=== PATIENT | female | born 1975 | race Caucasian/White ===

== ENCOUNTER 2018-02-22 13:51 | Emergency (ER) | payer MEDICAID ==
[~2018-02-22] VITALS: Ht 172.7 cm; Wt 126.1 kg
[2018-02-22 14:02] VITALS: BP 152/78
[2018-02-22] MEDS ORDERED: IBUPROFEN 800 MG TAB PO ONE (15:45)
== END 2018-02-22 15:45 | disposition home or self-care (01) ==
LOC: ER 13:51
DX: S93.601A Unspecified sprain of right foot, initial encounter (principal); I10 Essential (primary) hypertension; W18.39XA Other fall on same level, initial encounter; Y93.01 Activity, walking, marching and hiking; Y99.8 Other external cause status; Y92.89 Other specified places as the place of occurrence of the external cause
CPT/HCPCS: 73630

== ENCOUNTER 2018-10-15 13:06 | Emergency (ER) | payer MEDICAID ==
[~2018-10-15] VITALS: Ht 172.7 cm; Wt 146.1 kg
[2018-10-15 14:57] VITALS: BP 134/80
[2018-10-15] MEDS ORDERED: KETOROLAC TROMETH 60MG/2ML VIAL IM ONE (15:15)
== END 2018-10-15 17:19 | disposition home or self-care (01) ==
LOC: ER 13:12
DX: S00.83XA Contusion of other part of head, initial encounter (principal); I10 Essential (primary) hypertension; Y07.03 Male partner, perpetrator of maltreatment and neglect; Y93.89 Activity, other specified; Y99.8 Other external cause status; Y92.89 Other specified places as the place of occurrence of the external cause
CPT/HCPCS: 70110; 96372; 99283; J1885

== ENCOUNTER 2020-07-27 21:02 | Inpatient (IN) | payer MEDICAID ==
[~2020-07-27] VITALS: Ht 172.7 cm; Wt 190.1 kg
[2020-07-27 22:15] LABS: Hematocrit 43.8 % (36.0-46.0); Hemoglobin 14.4 g/dL (12.2-16.2); Mean Corpuscular Hemoglobin 29.1 pg (28.0-32.0); Mean Corpuscular Hgb Conc. 32.8 g/dL (32.0-36.0); Mean Corpuscular Volume 88.5 fL (80.0-100.0); Platelet Count (auto) 187 10^3/uL (140-450); Red Blood Cells 4.95 10^6/uL (4.0-5.20); Red Cell Distribution Width 16.3 % (11.8-14.3); White Blood Cell 17.4 10^3/uL (4.4-10.8)
[2020-07-27 22:18] LABS: Basophils % (manual) 0 (0.0-2.0); Blast Cells 0; Eosinophils % (manual) 0 (0-7); Metamyelocytes % 0; Myelocytes % 0; Promyelocytes % 0; Reactive Lymphocytes 0
[2020-07-27 22:19] LABS: Chloride 105 mmol/L (98-107); Potassium 3.9 mmol/L (3.5-5.1); Sodium 138 mmol/L (136-145)
[2020-07-27 22:28] LABS: Alanine Aminotransferase 18 U/L (13-56); Albumin 3.1 g/dL (3.4-5.0); Alkaline Phosphatase 66 U/L (45-117); Anion Gap 7 (5-15); Aspartate Aminotransferase 18 U/L (15-37); Blood Urea Nitrogen 15 mg/dL (7-18); Calcium 8.1 mg/dL (8.5-10.1); Carbon Dioxide 26 mmol/L (21-32); GFR African American 43 mL/min; GFR Non-African American 36 mL/min; Glucose 134 mg/dL (74-106); Lactate Dehydrogenase 224 U/L (84-246); Magnesium 1.9 mg/dL (1.6-2.6); Total Protein 7.5 g/dL (6.4-8.2)
[2020-07-27 22:32] LABS: INR 1.03 (0.9-1.15); Partial Thromboplastin Time 20.6 sec (23.0-31.2)
[2020-07-27 23:03] LABS: Band Neutrophils % (manual) 3; Lymphocytes % (manual) 5 (10.0-50.0); Monocytes % (manual) 7 (0-12)
[2020-07-28] MEDS ORDERED: cefTRIAXone 1GM/50ML D5W 50 ML IV ONE
[2020-07-28] MEDS ORDERED: AZITHROMYCIN 500MG/ 250ML 250 ML IV ONE
[2020-07-28] MEDS ORDERED: SODIUM CHLORIDE 0.9% 1,000 ML IV SCH ×2 (00:45→17:15)
[2020-07-28] MEDS ORDERED: ONDANSETRON HCL 4 MG/2 ML VIAL IV ONE (00:45)
[2020-07-28] MEDS ORDERED: NITROGLYCERIN 0.4 MG SL TAB SL PRN (00:45)
[2020-07-28] MEDS ORDERED: TEMAZEPAM 15 MG CAP PO PRN (00:45)
[2020-07-28] MEDS ORDERED: ALBUTEROL SULF HFA 90MCG INH 200DOSE IN PRN (00:45)
[2020-07-28] MEDS ORDERED: MORPHINE SULF INJ 2 MG/ML SYRINGE 1ML IV PRN ×2 (00:45→11:30)
[2020-07-28] MEDS ORDERED: ACETAMINOPHEN 500 MG TAB PO PRN (00:45)
[2020-07-28] MEDS ORDERED: SODIUM CHLORIDE 0.9% 500 ML IV ONE (00:45)
[2020-07-28 01:04] LABS: Urine Bacteria MOD /hpf (None Seen); Urine Blood 3+ /uL (Negative); Urine Hyaline Cast FEW /lpf (0 - 2); Urine Mucus FEW (None Seen); Urine Specific Gravity 1.025 (1.001-1.035); Urine WBC 1248 /hpf (0 - 5); Urine WBC Clumps PRESENT /hpf (None Seen)
[2020-07-28 01:45] VITALS: BP 111/69
[2020-07-28 02:25] VITALS: BP 111/69
[2020-07-28 04:57] VITALS: BP 103/58
[2020-07-28] MEDS: IPRATROPIUM BROMIDE HFA AER IN SCH ×2 (06:00→12:00)
[2020-07-28] MEDS: cefTRIAXone 1GM/50ML D5W 50 ML IV SCH (08:30)
[2020-07-28 08:33] VITALS: BP 81/41
[2020-07-28] MEDS ORDERED: ENOXAPARIN SOD 40 MG/0.4 ML SYRINGE SC SCH (10:00)
[2020-07-28] MEDS ORDERED: ZINC SULFATE 220mg CAP or TAB PO SCH (10:00)
[2020-07-28] MEDS ORDERED: ASCORBIC ACID 1,000 MG TAB PO SCH (10:00)
[2020-07-28] MEDS ORDERED: BUDESONIDE (INHALATION) 180 MCG IH IN SCH (10:00)
[2020-07-28] MEDS ORDERED: CHOLECALCIFEROL (VITD3) 2,000 UNIT CAP/TAB PO SCH (10:00)
[2020-07-28] MEDS ORDERED: DexAMETHasone SOD PHOS 10MG/1ML VIAL INJ IV SCH (10:00)
[2020-07-28] MEDS: AZITHROMYCIN 500MG/ 250ML 250 ML IV SCH (10:40)
[2020-07-28] MEDS: PANTOPRAZOLE 40 MG TAB PO SCH (10:41)
[2020-07-28] MEDS: ONDANSETRON HCL 4 MG/2 ML VIAL IV PRN (12:17)
[2020-07-28 12:30] VITALS: BP 81/45
[2020-07-28] MEDS ORDERED: ALBUMIN 25% 100 ML IV ONE (16:45)
[2020-07-28] MEDS: BUDESONIDE (INHALATION) 0.5 MG/2 ML NEB NEB SCH (19:19)
[2020-07-28] MEDS: IPRATROPIUM BROM 0.5 MG/2.5ML INH SOL NEB SCH (19:19)
[2020-07-28] MEDS: ALBUTEROL SULF 2.5 MG/0.5ML(0.5%) NEB SOLN NEB SCH (19:19)
[2020-07-28 22:00] VITALS: BP 113/70
[2020-07-28] MEDS: ENOXAPARIN SOD 150 MG/1 ML SYRINGE SC SCH (22:28)
[2020-07-29 05:00] VITALS: BP 105/50
[2020-07-29 06:06] LABS: Basophils # (auto) 0 10 ^3/uL (0-0.2); Eosinophils # (auto) 0 10 ^3/uL (0-0.8); Hematocrit 37.6 % (36.0-46.0); Hemoglobin 12.2 g/dL (12.2-16.2); Lymphocytes # (auto) 1.2 10 ^3/uL (0.4-5.4); Lymphocytes % (auto) 5.2 % (10.0-50.0); Mean Corpuscular Hemoglobin 28.8 pg (28.0-32.0); Mean Corpuscular Hgb Conc. 32.5 g/dL (32.0-36.0); Mean Corpuscular Volume 88.5 fL (80.0-100.0); Monocytes # (auto) 1.1 10 ^3/uL (0-1.3); Monocytes % (auto) 4.9 % (0.0-12.0); Neutrophils % (auto) 89.9 % (37.0-80.0); Platelet Count (auto) 228 10^3/uL (140-450); Red Blood Cells 4.24 10^6/uL (4.0-5.20); White Blood Cell 22.2 10^3/uL (4.4-10.8)
[2020-07-29 06:16] LABS: Albumin 2.8 g/dL (3.4-5.0); Calcium 8.3 mg/dL (8.5-10.1); Potassium 4.1 mmol/L (3.5-5.1)
[2020-07-29 06:19] LABS: BUN/Creatinine Ratio 14.3; Bilirubin, Total 0.6 mg/dL (0.2-1.0); Total Protein 7.7 g/dL (6.4-8.2)
[2020-07-29 08:00] VITALS: BP 113/73
[2020-07-29] MEDS: BUDESONIDE (INHALATION) 0.5 MG/2 ML NEB NEB SCH ×2 (08:49→19:13)
[2020-07-29] MEDS: IPRATROPIUM BROM 0.5 MG/2.5ML INH SOL NEB SCH ×2 (08:49→19:13)
[2020-07-29] MEDS: ALBUTEROL SULF 2.5 MG/0.5ML(0.5%) NEB SOLN NEB SCH ×2 (08:49→19:13)
[2020-07-29 09:00] VITALS: BP 113/73
[2020-07-29] MEDS: cefTRIAXone 1GM/50ML D5W 50 ML IV SCH (09:16)
[2020-07-29] MEDS: PANTOPRAZOLE 40 MG TAB PO SCH (09:36)
[2020-07-29] MEDS: ENOXAPARIN SOD 150 MG/1 ML SYRINGE SC SCH (09:37)
[2020-07-29] MEDS: AZITHROMYCIN 500MG/ 250ML 250 ML IV SCH (10:03)
[2020-07-29] MEDS: SODIUM CHLORIDE 0.9% 1,000 ML IV SCH ×2 (11:11→18:36)
[2020-07-29 12:56] LABS: Urine Bacteria FEW /hpf (None Seen); Urine Blood 2+ /uL (Negative); Urine Hyaline Cast FEW /lpf (0 - 2); Urine Mucus FEW (None Seen); Urine WBC 40 /hpf (0 - 5)
[2020-07-29 13:00] VITALS: BP 143/82
[2020-07-29] MEDS: HYDROcodone-ACET 5/325MG TAB PO PRN (13:15)
[2020-07-29] MEDS: metroNIDAZOLE 500MG/100ML 100 ML IV SCH ×2 (13:45→21:11)
[2020-07-29 17:00] VITALS: BP 146/91
[2020-07-29] MEDS: ENOXAPARIN SOD 40 MG/0.4 ML SYRINGE SC SCH (21:11)
[2020-07-29 22:00] VITALS: BP 132/77
[2020-07-30] MEDS: SODIUM CHLORIDE 0.9% 1,000 ML IV SCH ×2 (03:04→11:40)
[2020-07-30 05:00] VITALS: BP 132/79
[2020-07-30] MEDS: metroNIDAZOLE 500MG/100ML 100 ML IV SCH ×3 (05:24→21:21)
[2020-07-30] MEDS: ALBUTEROL SULF 2.5 MG/0.5ML(0.5%) NEB SOLN NEB SCH ×3 (05:57→20:06)
[2020-07-30] MEDS: IPRATROPIUM BROM 0.5 MG/2.5ML INH SOL NEB SCH ×3 (05:57→20:06)
[2020-07-30] MEDS: BUDESONIDE (INHALATION) 0.5 MG/2 ML NEB NEB SCH ×2 (05:57→20:06)
[2020-07-30 05:59] LABS: Basophils # (auto) 0 10 ^3/uL (0-0.2); Basophils % (auto) 0.1 % (0.0-2.0); Eosinophils # (auto) 0.1 10 ^3/uL (0-0.8); Eosinophils % (auto) 0.5 % (0.0-7.0); Hematocrit 35.6 % (36.0-46.0); Hemoglobin 11.6 g/dL (12.2-16.2); Lymphocytes # (auto) 1.3 10 ^3/uL (0.4-5.4); Lymphocytes % (auto) 8.9 % (10.0-50.0); Mean Corpuscular Hemoglobin 29.4 pg (28.0-32.0); Mean Corpuscular Hgb Conc. 32.6 g/dL (32.0-36.0); Monocytes # (auto) 0.6 10 ^3/uL (0-1.3); Neutrophils # (auto) 12.3 10 ^3/uL (1.6-8.6); Neutrophils % (auto) 86.5 % (37.0-80.0); Platelet Count (auto) 222 10^3/uL (140-450); Red Blood Cells 3.96 10^6/uL (4.0-5.20); Red Cell Distribution Width 16.3 % (11.8-14.3); White Blood Cell 14.2 10^3/uL (4.4-10.8)
[2020-07-30 06:20] LABS: Potassium 4.3 mmol/L (3.5-5.1)
[2020-07-30 06:29] LABS: BUN/Creatinine Ratio 20.7; Calcium 7.9 mg/dL (8.5-10.1)
[2020-07-30 08:00] VITALS: BP 156/80
[2020-07-30] MEDS ORDERED: SODIUM CHLORIDE 0.9% 1,000 ML IV ONE (08:30)
[2020-07-30 08:41] VITALS: BP 156/80
[2020-07-30] MEDS: cefTRIAXone 1GM/50ML D5W 50 ML IV SCH (09:34)
[2020-07-30] MEDS: PANTOPRAZOLE 40 MG TAB PO SCH (09:35)
[2020-07-30] MEDS: ENOXAPARIN SOD 40 MG/0.4 ML SYRINGE SC SCH ×2 (09:35→21:21)
[2020-07-30 12:55] VITALS: BP 126/74
[2020-07-30] MEDS: guaiFENesin-DM 100/10mg/5ml SYR PO PRN ×2 (15:32→21:22)
[2020-07-30 16:47] VITALS: BP 127/82
[2020-07-30] MEDS: HYDROcodone-ACET 5/325MG TAB PO PRN (18:59)
[2020-07-30 22:00] VITALS: BP 109/59
[2020-07-31 05:00] VITALS: BP 116/68
[2020-07-31 06:15] LABS: Basophils # (auto) 0 10 ^3/uL (0-0.2); Basophils % (auto) 0.3 % (0.0-2.0); Eosinophils # (auto) 0.2 10 ^3/uL (0-0.8); Eosinophils % (auto) 2.6 % (0.0-7.0); Hematocrit 34.3 % (36.0-46.0); Hemoglobin 11.3 g/dL (12.2-16.2); Lymphocytes # (auto) 1.5 10 ^3/uL (0.4-5.4); Lymphocytes % (auto) 17.6 % (10.0-50.0); Mean Corpuscular Hemoglobin 29.6 pg (28.0-32.0); Mean Corpuscular Hgb Conc. 33.1 g/dL (32.0-36.0); Mean Corpuscular Volume 89.5 fL (80.0-100.0); Monocytes # (auto) 0.6 10 ^3/uL (0-1.3); Neutrophils # (auto) 6.2 10 ^3/uL (1.6-8.6); Neutrophils % (auto) 72.5 % (37.0-80.0); Nucleated Red Blood Cells % 0.1 %; Platelet Count (auto) 198 10^3/uL (140-450); Red Blood Cells 3.83 10^6/uL (4.0-5.20); Red Cell Distribution Width 16.5 % (11.8-14.3); White Blood Cell 8.5 10^3/uL (4.4-10.8)
[2020-07-31 06:30] LABS: BUN/Creatinine Ratio 19.4; Potassium 4.3 mmol/L (3.5-5.1)
[2020-07-31] MEDS: metroNIDAZOLE 500MG/100ML 100 ML IV SCH ×3 (06:30→21:25)
[2020-07-31] MEDS: SODIUM CHLORIDE 0.9% 1,000 ML IV SCH (07:30)
[2020-07-31] MEDS: ALBUTEROL SULF 2.5 MG/0.5ML(0.5%) NEB SOLN NEB SCH ×3 (07:42→18:01)
[2020-07-31] MEDS: BUDESONIDE (INHALATION) 0.5 MG/2 ML NEB NEB SCH ×2 (07:42→18:01)
[2020-07-31] MEDS: IPRATROPIUM BROM 0.5 MG/2.5ML INH SOL NEB SCH ×3 (07:42→18:01)
[2020-07-31 09:00] VITALS: BP 136/82
[2020-07-31] MEDS: PANTOPRAZOLE 40 MG TAB PO SCH (10:01)
[2020-07-31] MEDS: cefTRIAXone 1GM/50ML D5W 50 ML IV SCH (10:01)
[2020-07-31] MEDS: ENOXAPARIN SOD 40 MG/0.4 ML SYRINGE SC SCH ×2 (10:01→21:26)
[2020-07-31 13:00] VITALS: BP 128/87
[2020-07-31 17:00] VITALS: BP 134/89
[2020-07-31] MEDS: HYDROcodone-ACET 5/325MG TAB PO PRN (21:25)
[2020-07-31 22:00] VITALS: BP 140/85
[2020-08-01 05:00] VITALS: BP 137/87
[2020-08-01] MEDS: SODIUM CHLORIDE 0.9% 1,000 ML IV SCH (06:00)
[2020-08-01] MEDS: IPRATROPIUM BROM 0.5 MG/2.5ML INH SOL NEB SCH ×3 (06:22→18:54)
[2020-08-01] MEDS: BUDESONIDE (INHALATION) 0.5 MG/2 ML NEB NEB SCH ×2 (06:22→18:54)
[2020-08-01] MEDS: ALBUTEROL SULF 2.5 MG/0.5ML(0.5%) NEB SOLN NEB SCH ×3 (06:22→18:54)
[2020-08-01] MEDS: metroNIDAZOLE 500MG/100ML 100 ML IV SCH ×3 (06:27→22:02)
[2020-08-01 06:36] LABS: Basophils # (auto) 0 10 ^3/uL (0-0.2); Basophils % (auto) 0.3 % (0.0-2.0); Eosinophils # (auto) 0.2 10 ^3/uL (0-0.8); Eosinophils % (auto) 3.3 % (0.0-7.0); Hematocrit 35.3 % (36.0-46.0); Hemoglobin 11.7 g/dL (12.2-16.2); Lymphocytes # (auto) 1.7 10 ^3/uL (0.4-5.4); Lymphocytes % (auto) 22.9 % (10.0-50.0); Mean Corpuscular Hemoglobin 29.6 pg (28.0-32.0); Mean Corpuscular Hgb Conc. 33.1 g/dL (32.0-36.0); Mean Corpuscular Volume 89.3 fL (80.0-100.0); Monocytes # (auto) 0.6 10 ^3/uL (0-1.3); Monocytes % (auto) 8.6 % (0.0-12.0); Neutrophils # (auto) 4.7 10 ^3/uL (1.6-8.6); Neutrophils % (auto) 64.9 % (37.0-80.0); Nucleated Red Blood Cells % 0.1 %; Platelet Count (auto) 210 10^3/uL (140-450); Red Blood Cells 3.95 10^6/uL (4.0-5.20); Red Cell Distribution Width 15.9 % (11.8-14.3); White Blood Cell 7.2 10^3/uL (4.4-10.8)
[2020-08-01 06:44] LABS: Albumin 2.5 g/dL (3.4-5.0); Calcium 8.4 mg/dL (8.5-10.1); Potassium 4.5 mmol/L (3.5-5.1)
[2020-08-01 06:47] LABS: BUN/Creatinine Ratio 15.5; Bilirubin, Total 0.6 mg/dL (0.2-1.0); Total Protein 6.8 g/dL (6.4-8.2)
[2020-08-01] MEDS: PANTOPRAZOLE 40 MG TAB PO SCH (08:18)
[2020-08-01] MEDS: cefTRIAXone 1GM/50ML D5W 50 ML IV SCH (08:18)
[2020-08-01] MEDS: ENOXAPARIN SOD 40 MG/0.4 ML SYRINGE SC SCH ×2 (08:19→22:03)
[2020-08-01] MEDS: HYDROcodone-ACET 5/325MG TAB PO PRN ×2 (08:20→22:19)
[2020-08-01 08:35] VITALS: BP 160/93
[2020-08-01 09:06] VITALS: BP 160/93
[2020-08-01] MEDS: ONDANSETRON HCL 4 MG/2 ML VIAL IV PRN (11:59)
[2020-08-01 13:00] VITALS: BP 155/98
[2020-08-01 17:00] VITALS: BP 131/65
[2020-08-01 22:00] VITALS: BP 151/91
[2020-08-01] MEDS: guaiFENesin-DM 100/10mg/5ml SYR PO PRN (22:19)
[2020-08-02 05:00] VITALS: BP 125/75
[2020-08-02] MEDS: metroNIDAZOLE 500MG/100ML 100 ML IV SCH ×2 (06:06→13:21)
[2020-08-02] MEDS: IPRATROPIUM BROM 0.5 MG/2.5ML INH SOL NEB SCH ×2 (07:36→12:30)
[2020-08-02] MEDS: ALBUTEROL SULF 2.5 MG/0.5ML(0.5%) NEB SOLN NEB SCH ×2 (07:37→12:30)
[2020-08-02] MEDS: BUDESONIDE (INHALATION) 0.5 MG/2 ML NEB NEB SCH (07:37)
[2020-08-02 08:45] VITALS: BP 139/84
[2020-08-02] MEDS: ENOXAPARIN SOD 40 MG/0.4 ML SYRINGE SC SCH (08:47)
[2020-08-02] MEDS: PANTOPRAZOLE 40 MG TAB PO SCH (08:47)
[2020-08-02] MEDS: cefTRIAXone 1GM/50ML D5W 50 ML IV SCH (08:47)
[2020-08-02 13:00] VITALS: BP 141/94
[2020-08-02 16:27] VITALS: BP 144/86
[2020-08-02 16:39] VITALS: BP 144/86
== END 2020-08-02 18:20 | disposition home or self-care (01) | DRG 720 ==
LOC: ER 21:06 → TELE 07-28 00:32 → TELE-EAST 07-28 01:45
PROVIDERS: ADMIT Nurse Practitioner; ATTEND Internal Medicine
PROC: 05HD33Z Insertion of Infusion Device into Right Cephalic Vein, Percutaneous Approach (ICD-10-PCS; principal; 2020-07-28)
PROC: B54MZZA Ultrasonography of Right Upper Extremity Veins, Guidance (ICD-10-PCS; 2020-07-28)
DX: A41.9 Sepsis, unspecified organism (principal); J96.01 Acute respiratory failure with hypoxia; N17.0 Acute kidney failure with tubular necrosis; I95.9 Hypotension, unspecified; E44.1 Mild protein-calorie malnutrition; E66.2 Morbid (severe) obesity with alveolar hypoventilation; Z68.44 Body mass index [BMI] 60.0-69.9, adult; N39.0 Urinary tract infection, site not specified; J98.11 Atelectasis; Z82.49 Family history of ischemic heart disease and other diseases of the circulatory system; Z98.2 Presence of cerebrospinal fluid drainage device; I10 Essential (primary) hypertension; Z20.822 Contact with and (suspected) exposure to COVID-19; R19.7 Diarrhea, unspecified
CPT/HCPCS: 36415; 36600; 71045; 72131; 76775; 80048; 80053; 81001; 82728; 82805; 83605; 83615; 83735; 83880; 84484; 85007; 85025; 85027; 85379; 85610; 85730; 87040; 87086; 87426; 93005; 93306; 93970; 94640; 96365; 96367; 96375; G0378; J0696; J1100; J2405; J3490; P9047

== ENCOUNTER 2020-09-08 18:21 | Emergency (ER) | payer MEDICAID ==
[~2020-09-08] VITALS: Ht 172.7 cm; Wt 181.4 kg
[2020-09-08 21:15] VITALS: BP 150/94
[2020-09-08] MEDS ORDERED: HYDROcodone-ACET 10/325MG TAB PO ONE (21:15)
[2020-09-08] MEDS ORDERED: ONDANSETRON ODT 4 MG TAB PO ONE (21:15)
== END 2020-09-08 23:23 | disposition left against medical advice (07) ==
LOC: EDBD 18:21 → ER 18:21
DX: S39.012A Strain of muscle, fascia and tendon of lower back, initial encounter (principal); S83.92XA Sprain of unspecified site of left knee, initial encounter; S16.1XXA Strain of muscle, fascia and tendon at neck level, initial encounter; M47.9 Spondylosis, unspecified; M17.10 Unilateral primary osteoarthritis, unspecified knee; I10 Essential (primary) hypertension; G89.29 Other chronic pain; V49.9XXA Car occupant (driver) (passenger) injured in unspecified traffic accident, initial encounter; Y93.89 Activity, other specified; Y92.89 Other specified places as the place of occurrence of the external cause; Y99.8 Other external cause status
CPT/HCPCS: 72125; 72131; 73562; 99285; Q0162